=== PATIENT | male | born 1990 | race Caucasian/White ===

== ENCOUNTER → 2025-06-25 | Outpatient (CLI) | payer OTHER, SELFPAY ==
--- OUTSIDE RECORDS SUMMARY | 2024-09-04 10:14 | XMS RPT_ITS ---
Author Name Auto Generated Organization OHIP Care Team Providers Care Actuarial Internship Name Role Phone POLLY FISHER Attending Unavaanthony lable JANE, POLLY VISHNU Primary Care Unavai lable JANEMIMA [place] VISHNU Referring Unavai lable JANE, GREENBUSH VISHNU Primary Care Unavai lable PROBLEMS DATE TYPE CONDITION / CODE ATTENDING STATUS [facility] 01/15/2021 Active Seasonal allergi es / J30.2(ICD-10) [facility] 09/01/2024 Active Acute non-recurr ent maxillary sinusitis / J01.00(ICD-10) [facility] 09/01/2024 Active Class 1 obesity with body mass index (BMI) of 31.0 to 31.9 in adult, unspecified obesity type, unspecified whether serious comorbidity present / E66.811(ICD-10) [facility] 09/01/2024 Active Class 1 obesity with body mass index (BMI) of 31.0 to 31.9 in adult, unspecified obesity type, unspecified whether serious comorbidity present / Z68.31(ICD-10) [facility] 09/01/2024 Active Hyperlipidemia, mixed / E78.2(ICD-10) [facility] 09/01/2024 Active Screening for th yroid disorder / Z13.29(ICD-10) [facility] PROCEDURES No Procedure Records Found RESULTS COMP METAB 2000 PNL SERPL Collected: 9:17 AM Status: F Source: [facility] Order Comment: Specimen Type : BLOOD SPECIMEN Ordering Facility: [facility] Address: [address] [place] [id number] TYPE CODE TESTS RESULT OUT OF RANGE REFERENCE UNITS LAB 2885-2(LOINC) Prot SerPl-mCnc 7.1 6.3-8.0 g/dL LAB 1751-7(LOINC) Albumin SerPl-mCnc 4.7 3.9-4.9 g/dL LAB 10163-3(LOINC) Calcium SerPl-mCnc 9.7 8.5-10.2 mg/dL LAB 1975-2(LOINC) Bilirub SerPl-mCnc 0.4 0.2-1.3 mg/dL LAB 6768-6(LOINC) ALP SerPl-cCnc 85 38-113 U/L LAB 1920-8(LOINC) AST SerPl-cCnc 30 14-40 U/L LAB 1742-6(LOINC) ALT SerPl-cCnc 49 10-54 U/L LAB 2345-7(LOINC) Glucose SerPl-mCnc 98 74-99 mg/dL Result Comment: The [place] Diabetes [employer] (ADA) provides guidance for cutoff values for fasting glucose and random glucose. The ADA defines fasting as no caloric intake for at least 8 hours. Fasting plasma glucose results between 100 to 125 mg/dL indicate increased risk for diabetes (prediabetes). Fasting plasma glucose results greater than or equal to 126 mg/dL meet the criteria for diagnosis of diabetes. In the absence of unequivocal hyperglycemia, results should be confirmed by repeat testing. In a patient with classic symptoms of hyperglycemia or hyperglycemic crisis, random plasma glucose results greater than or equal to 200 mg/dL meet the criteria for diagnosis of diabetes. Reference: Standards of Medical Care in Diabetes 2016, [place] Diabetes Association. Diabetes Care. 2016.39(Suppl 1). LAB 3094-0(LOINC) BUN SerPl-mCnc 16 9-24 mg/ dL LAB 2160-0(LOINC) Creat SerPl-mCnc 1.02 0.73-1.22 mg/dL LAB 2951-2(LOINC) Sodium SerPl-sCnc 137 136-144 mmol/L LAB 2823-3(LOINC) Potassium SerPl-sCnc 4.0 3.7-5.1 mmol/L LAB 2075-0(LOINC) Chloride SerPl-sCnc 102 98-107 mmol/L LAB 2028-05(LOINC) CO2 SerPl-sCnc 23 22-30 mmo l/L LAB 25589-5(LOINC) Anion Gap SerPl-sCnc 12 8-15 mmol/L LAB 28115-4(LOINC) Creatinine + eGFR Pnl SerPlBld 98 >=60 mL/min/1 .73m??? Result Comment: Estimated Gl omerular Filtration Rate (eGFR) is calculated using the 2020 CKD-EPI creatinine equation. This equation utilizes serum creatinine, sex, and age as parameters. The creatinine assay has traceable calibration to isotope dilution-mass spectrometry. Refer to KDIGO guidelines for clinical interpretation. In patients with unstable renal function, e.g. those with acute kidney injury, the eGFR may not accurately reflect actual GFR. Performed By: #### 3016-3, 2 4323-8, 85704-3 #### [facility] CLIA [id number] [address] [place] [address] [place] LIPID 1996 PNL SERPL Collected: 024 9:17 AM Status: F Source: [facility] Order Comment: Specimen Type : BLOOD SPECIMEN Ordering Facility: [facility] Address: [address] [place] [address] TYPE CODE TESTS RESULT OUT OF RANGE REFERENCE UNITS LAB 3-3(LOINC) Cholest SerPl-mCnc 210 High <200 mg/dL Result Comment: <200 mg/dL, Desirable 200-239 mg/dL, Borderline high >239 mg/dL, High LAB 2571-8(LOINC) Trigl SerPl-mCnc 99 <150 mg/dL Result Comment: <150 mg/dL, Normal 150-199 mg/dL, Borderline high 200-499 mg/dL, High >499 mg/dL, Very high LAB 2085-9(LOINC) HDLc SerPl-mCnc 38 Low >39 mg/dL Result Comment: 40-59 mg/dL, Acceptable >59 mg/dL, High: Negative risk factor for coronary heart disease <40 mg/dL, Low: Positive risk factor for coronary heart disease LAB 42012-9(LOINC) NonHDLc SerPl-mCnc 172 High <130 mg/dL Result Comment: <130 mg/dL, Optimal 130-159 mg/dL, Near optimal/above optimal 160-189 mg/dL, Borderline high 190-219 mg/dL, High >219 mg/dL, Very high Secondary prevention optimal non HDL Cholesterol levels are recommended to be <100 mg/dL LAB FT FASTING TIME 13 hrs Result Comment: black coffee and water LAB 17506-8(LOINC) VLDLc SerPl Calc-mCnc 20 <30 mg/dL LAB 9830-1(LOINC) Cholest/HDLc SerPl 5.53 High <5.10 LAB 2089-1(LOINC) LDLc SerPl-mCnc 152 High <100 mg/dL Result Comment: <100 mg/dL, Optimal 100-129 mg/dL, Near optimal/above optimal 130-159 mg/dL, Borderline high 160-189 mg/dL, High >189 mg/dL, Very high Secondary prevention optimal LDL Cholesterol levels are recommended to be < 70 mg/dL LAB 60186-0(LOINC) LDLc/HDLc SerPl 4.00 High <2.54 Result Comment: Reference: 1. National Cholesterol Education Program ATP III Guideline At-A-Glance Quick Desk Reference: National Heart, Lung, and Blood [place]. National Institutes of Health. 2001: NIH Publication No. 01-3305. 2. An International Atherosclerosis Society position paper: global recommendations for the management of dyslipidemia: executive summary, Atherosclerosis. 2014: 232(2):410-413. Performed By: #### 3016-3, 2 432-8, 10688-7 #### [facility] CLIA [id number] [address] [place] [address] [place] TSH SERPL-ACNC Collected: 4 9:17 AM Status: F Source: [facility] Order Comment: Specimen Type : BLOOD SPECIMEN Ordering Facility: [facility] Address: [address] [place] [address] TYPE CODE TESTS RESULT OUT OF RANGE REFERENCE UNITS LAB 3016-3([facility]) TSH SerPl-aCnc 1.380 0.270-4.200 mIU/L Performed By: #### 3016-3, 2 1233-8, 98848-8 #### [facility] CLIA [id number] [address] [facility] [address] [address] [place] CBC W AUTO DIFF BLD Collected: 09/04/2024 9:[address] atus: F Source: [facility] Order Comment: Specimen Type : BLOOD SPECIMEN Ordering Facility: [facility] Address: [address] [place], [place] [id number] TYPE CODE TESTS RESULT OUT OF RANGE REFERENCE UNITS LAB 6690-2([facility]) WBC # Bld Auto 7.36 3.70-11.00 k/uL LAB 789-8([facility]) RBC # Bld Auto 4.93 4.20-6.00 m/ uL LAB 718-7([facility]) Hgb Bld-mCnc 14.6 13.0-17.0 g/dL LAB 4544-3([facility]) Hct VFr Bld Auto 43.8 39.0-51.0 % LAB 787-2([facility]) MCV RBC Auto 88.8 80.0-100.0 fL LAB 785-6([facility]) MCH RBC Qn Auto 29.6 26.0-34.0 p g LAB 786-4([facility]) MCHC RBC Auto-mCnc 33.3 30.5-36.0 g/dL LAB 77215-4([facility]) RDW RBC-Rto 12.1 11.5-15.0 % LAB 777-3(INC) Platelet # Bld Auto 331 150-400 k/uL LAB 21170-2(INC) PMV Bld Auto 9.6 9.0-12.7 fL LAB 770-8(INC) Neutrophils/leuk NFr Bld Auto 48.5 % LAB 751-8(INC) Neutrophils # Bld Auto 3.57 1.45-7.50 k/uL LAB 736-9(INC) Lymphocytes/leuk NFr Bld Auto 34.1 % LAB 731-0(LOINC) Lymphocytes # Bld Auto 2.51 1.00-4.00 k/uL LAB 5905-5(INC) Monocytes/leuk NFr Bld Auto 12.9 % LAB 742-7(LOINC) Monocytes # Bld Auto 0.95 High <0.87 k/uL LAB 713-8(LOINC) Eosinophil/leuk NFr Bld Auto 3.0 % LAB 711-2(LOINC) Eosinophil # Bld Auto 0.22 <0.46 k/uL LAB 706-2(LOINC) Basophils/leuk NFr Bld Auto 1.1 % LAB 704-7(LOINC) Basophils # Bld Auto 0.08 <0.11 k/uL LAB 93411-4(LOINC) Imm Granulocytes/iris k NFr Bld Auto 0.4 % LAB 94535-0(LOINC) Imm Granulocytes # Bld Auto 0.03 <0.10 k/uL LAB 81501-2(LOINC) nRBC/100 WBC Bld-Rto 0.0 /100 WBC LAB 771-6(LOINC) nRBC # Bld Auto <0.01 <0.01 k/u L LAB 85409-9(LOINC) Differential method Bld Auto Performed By: #### 71993-0 # ### [facility] CLIA [id number] [address] [place] [address] CNOV Observed: 09/01/2024 10:30 AM Status: COMPLETED Source: [facility] Office Visit (FPDOYL) KALIA IVY ([id number]) 1990 M Date Time Provider Department 09/01/24 10:30 AM POLLY FISHER FPDOYL During your visit today, we recorded the following information about you: Pulse Blood pressure Weight Height 79/minute 120/88 105.7 kg 1.829 m Polly Fisher DO 09/10/2024 8:21 PM Signed [facility] [place] Fisher DO [address] [place] [address] Date of Evaluation: 09/01/2024 Patient Name: Kalia Ivy : 1990 Chief Complaint: Patient presents with: URI: Was recently ill - would like to have zpac refilled Sore throat Sinus infection s/s Nursing Intake: There are no exam notes on file for this visit. Subjective Mr. Ivy is a 33 year old male who presents with the following complaint(s): The history is provided by the patient. No agronomy manager was used. URI There is no cough or shortness of breath. This is a new problem. The current episode started in the past 7 days. The problem occurs daily. The problem has been unchanged. Associated symptoms include nasal congestion and a sore throat. Pertinent negatives include no chest pain or headaches. Review of Systems Constitutional: Negative for fatigue and unexpected weight change. HENT: Positive for sore throat. Negative for nosebleeds. Eyes: Negative for redness and visual disturbance. Respiratory: Negative for apnea, cough and shortness of breath. Cardiovascular: Negative for chest pain, palpitations and leg swelling. Genitourinary: Negative for hematuria. Neurological: Negative for dizziness, weakness, light-headedness, numbness and headaches. Hematological: Does not bruise/bleed easily. Psychiatric/Behavioral: The patient is not nervous/anxious. PAST MEDICAL HISTORY Diagnosis Date Acute upper respiratory infection Attention-deficit hyperactivity disorder, unspecified type Dyspnea Lumbar spondylosis with myelopathy Sciatica PAST SURGICAL HISTORY Procedure Laterality Date HERNIA REPAIR HX 09/27/2014 inguinal ORTHOPEDIC SURGERY HX right hand TONSILLECTOMY HX 09/27/2010 FAMILY HISTORY Problem Relation Age of Onset Cancer Mother Diabetes Maternal Grandmother Social History Tobacco Use Smoking status: Former Types: Cigarettes Start date: 04/19/2006 Smokeless tobacco: Former Types: Chew Vaping Use Vaping status: Never Used Substance Use Topics Alcohol use: Yes Alcohol/week: 3.0 standard drinks of alcohol Types: 3 Cans of Beer (12oz) per week Current Outpatient Medications Medication Sig valACYclovir (VALTREX) 1 gram Take 1 tablet by mouth as needed (Take 2 tablets at onset, then 12 hours later take 2 more. Then 3 times a day until relief.). At onset of cold sore MULTIVITAMIN ORAL Take by mouth. azithromycin (ZITHROMAX Z-JESENIA) 250 mg tablet 2 tablets by mouth first day then 1 tablet the next 4 days fluticasone (FLONASE) 50 mcg/actuation nasal spray Use 2 Sprays in each nostril once daily. amphetamine-dextroamphetamine XR (ADDERALL XR) 20 mg capsule Take 1 capsule by mouth once daily for 30 doses. dextroamphetamine-amphetamine (ADDERALL) 10 mg tablet Sig: take 1 tablet by mouth once daily AT NOON predniSONE (DELTASONE) 10 mg tablet Take 3 tablets by mouth for 3 days, then take 2 tablets by mouth for 3 days, then take 1 tablet by mouth for 3 days. (Patient not taking: Reported on 11/14/2021) albuterol HFA (PROVENTIL HFA, VENTOLIN HFA) 90 mcg/actuation inhaler Inhale 2 Puffs as instructed every 4 hours as needed for wheezing/shortness of breath. No current facility-administered medications for this visit. I have confirmed and edited as necessary the past medical, family and social histories, HPI, and ROS obtained by others. Objective BP 120/88 Pulse 79 Ht 6' 0" (1.83m) Wt 233 lb (105.7kg) SpO2 95% BMI 31.59 kg/(m2). Physical Exam Vitals and nursing note reviewed. Constitutional: General: He is not in acute distress. Appearance: Normal appearance. He is well-developed. He is obese. He is ill-appearing. HENT: Head: Normocephalic. Left Ear: External ear normal. Nose: Nose normal. Mouth/Throat: Mouth: Mucous membranes are moist. Pharynx: Oropharynx is clear. Uvula midline. No oropharyngeal exudate or posterior oropharyngeal erythema. Eyes: General: Lids are normal. Vision grossly intact. Gaze aligned appropriately. No scleral icterus. Right eye: No discharge. Left eye: No discharge. Extraocular Movements: Extraocular movements intact. Conjunctiva/sclera: Conjunctivae normal. Pupils: Pupils are equal, round, and reactive to light. Neck: Thyroid: No thyroid mass, thyromegaly or thyroid tenderness. Vascular: No carotid bruit. Trachea: Trachea and phonation normal. Cardiovascular: Rate and Rhythm: Normal rate and regular rhythm. Pulses: Normal pulses. Heart sounds: Normal heart sounds. Pulmonary: Effort: Pulmonary effort is normal. Breath sounds: Normal breath sounds. Abdominal: General: Abdomen is flat. Bowel sounds are normal. Palpations: Abdomen is soft. Musculoskeletal: General: Normal range of motion. Right shoulder: Normal. Left shoulder: Normal. Cervical back: Normal, full passive range of motion without pain and neck supple. No tenderness. No spinous process tenderness. Thoracic back: Normal. Lumbar back: Normal. Right knee: Normal. Left knee: Normal. Right lower leg: No edema. Left lower leg: No edema. Lymphadenopathy: Cervical: No cervical adenopathy. Skin: General: Skin is warm and dry. Neurological: General: No focal deficit present. Mental Status: He is alert and oriented to person, place, and time. Mental status is at baseline. Sensory: Sensation is intact. Motor: Motor function is intact. Psychiatric: Attention and Perception: Attention and perception normal. Mood and Affect: Mood normal. Speech: Speech normal. Behavior: Behavior normal. Thought Content: Thought content normal. Judgment: Judgment normal. Data Reviewed: No new labs ASSESSMENT/PLAN: 1. Acute non-recurrent maxillary sinusitis - ICD9: 461.0, ICD10: J01.00 (primary diagnosis) - Will begin treatment with as per antibiotic as written, see orders - AZITHROMYCIN 250 MG TABLET 2. Hyperlipidemia, mixed - ICD9: 272.2, ICD10: E78.2 - Control undetermined, due for labs - COMPLETE BLOOD COUNT AND DIFFERENTIAL - COMPREHENSIVE METABOLIC PANEL - LIPID PANEL BASIC 3. Screening for thyroid disorder - ICD9: V77.0, ICD10: Z13.29 - THYROID STIMULATING HORMONE 4. Attention deficit hyperactivity disorder (ADHD), combined type - ICD9: 314.01, ICD10: F90.2 - Patient does not feel he needs ADHD medication and has not been taking. 5. Seasonal allergies - ICD9: 477.9, ICD10: J30.2 - Continue Flonase - FLUTICASONE PROPIONATE 50 MCG/ACTUATION NASAL SPRAY,SUSPENSION 6. Class 1 obesity with body mass index (BMI) of 31.0 to 31.9 in adult, unspecified obesity type, unspecified whether serious comorbidity present - ICD9: 278.00, V85.31, ICD10: E66.811, Z68.31 Polly Fisher, DO Return if symptoms worsen or fail to improve. Attestation: Scribe Attestation: The patient is seen and examined by Dr. Fisher and the following reflects his/her service. Scribed by Kassie Gordon September 01, 2024 10:40 AMProvider Attestation: I, Polly Fisher DO personally performed the services described in this documentation. All medical record entries made by the scribe were at my direction and in my presence. I have reviewed the chart and discharge instructions (if applicable) and agree that the record reflects my personal performance and is accurate and complete. Electronically Signed: Polly Fisher DO, September 01, 2024 10:43 AM Referring Provider: SELF [200] Allergies As of Date: 09/01/2024 Noted Allergy Reaction DIPHTHERIA TOXOID,ADSORBED 07/09/2018 12 - Shortness of Breath PENICILLIN 04/19/2016 2 - Rash PERTUSSIS IMMUNE GLOBULIN 04/19/2016 10 - Anaphylaxis POISON MIN EXTRACT 05/15/2015 16 - Unknown Date Reviewed: 09/01/2024 Reviewed by: Dori Mar LPN - Fully Assessed Reason for Visit: URI [115] Cmt: Was recently ill - would like to have zpac refilled Sore throat Sinus infection s/s Primary Visit Diagnosis:Hyperlipidemia, mixed [E78.2] Other Visit Diagnoses:Acute non-recurrent maxillary sinusitis [J01.00] Attention deficit hyperactivity disorder (ADHD), combined type [F90.2] Seasonal allergies [J30.2] Screening for thyroid disorder [Z13.29] Class 1 obesity with body mass index (BMI) of 31.0 to 31.9 in adult, unspecified obesity type, unspecified whether serious comorbidity present [E66.811, Z68.31] Order(s):azithromycin (ZITHROMAX Z-JESENIA) 250 mg tablet2 tablets by mouth first day then 1 tablet the next 4 daysDisp: 6 tabletRfl: 0 fluticasone (FLONASE) 50 mcg/actuation nasal sprayUse 2 Sprays in each nostril once daily.Disp: 1 EachRfl: 11 COMPLETE BLOOD COUNT AND DIFFERENTIAL [SQCBCDIF] Order #: [id number] FUTURE COMPREHENSIVE METABOLIC PANEL [SQCMP] Order #: [id number] FUTURE THYROID STIMULATING HORMONE [SQTSH] Order #: [id number] FUTURE LIPID PANEL BASIC [SQLIPB] Order #: [id number] FUTURE atorvastatin (LIPITOR) 20 mg tabletTake 1 tablet by mouth once daily.Disp: 90 tabletRfl: 3 LIPID PANEL BASIC [SQLIPB] Reflex Order#: [id number] (Ord#:[id number]) FUTURE HEPATIC FUNCTION PNL [SQHFP] Reflex Order#: [id number] (Ord#:[id number]) FUTURE Prescriptions as of 09/10/2024 - atorvastatin (LIPITOR) 20 mg tablet Take 1 tablet by mouth once daily. - azithromycin (ZITHROMAX Z-JESENIA) 250 mg tablet 2 tablets by mouth first day then 1 tablet the next 4 days - fluticasone (FLONASE) 50 mcg/actuation nasal spray Use 2 Sprays in each nostril once daily. - amphetamine-dextroamphetamine XR (ADDERALL XR) 20 mg capsule Take 1 capsule by mouth once daily for 30 doses. - dextroamphetamine-amphetamine (ADDERALL) 10 mg tablet Sig: take 1 tablet by mouth once daily AT NOON - valACYclovir (VALTREX) 1 gram Take 1 tablet by mouth as needed (Take 2 tablets at onset, then 12 hours later take 2 more. Then 3 times a day until relief.). At onset of cold sore - predniSONE (DELTASONE) 10 mg tablet Take 3 tablets by mouth for 3 days, then take 2 tablets by mouth for 3 days, then take 1 tablet by mouth for 3 days. - albuterol HFA (PROVENTIL HFA, VENTOLIN HFA) 90 mcg/actuation inhaler Inhale 2 Puffs as instructed every 4 hours as needed for wheezing/shortness of breath. - MULTIVITAMIN ORAL Take by mouth. Problem List As Of Date 09/01/2024 Noted Resolved Attention-deficit hyperactivity disorder, unspe* Seasonal allergies [J30.2] 01/15/2021 Elevated blood pressure reading without diagnos*08/12/2021 Prescriptions ordered this encounter Disp Refills Start End AZITHROMYCIN 250 MG TABLET 6 ta* 0 09/01/2024 Si tablets by mouth first day then 1 tablet the next 4 days FLUTICASONE PROPIONATE 50 MCG/ACTUAT* 1 Ea* 11 09/01/2024 Route: EACH NOSTRIL Sig: Use 2 Sprays in each nostril once daily. ATORVASTATIN 20 MG TABLET 90 t* 3 09/06/2024 09/06/2025 Route: ORAL Sig: Take 1 tablet by mouth once daily. Medications Discontinued During This Encounter Prescriptions - fluticasone (FLONASE) 50 mcg/actuation nasal spray (Discontinued) Use 2 Sprays in each nostril once daily. - azithromycin (ZITHROMAX Z-JESENIA) 250 mg tablet (Discontinued) 2 tablets by mouth first day then 1 tablet the next 4 days Disposition: Return if symptoms worsen or fail to improve. Follow-up and Disposition History for Encounter Date Provider Department Center 09/01/2024 [id number]-CDAPDBAJPOLLY FISHER*WENDYSHABBIR Diaz Encounter Status:Closed by POLLY FISHER on 09/10/24 PROGRESS Observed: 09/01/2024 10:26 AM Status: COMPLETED Source: [facility] HNO ID: [id number] Author: POLLY FISHER DO Service: ? Author Type: Physician Type: Progress Notes Filed: 09/10/2024 20:21 Note Text: [facility] [place] Fisher DO [address] [place] [address] Date of Evaluation: 09/01/2024 Patient Name: Kalia Ivy : 1990 Chief Complaint: Patient presents with: URI: Was recently ill - would like to have zpac refilled Sore throat Sinus infection s/s Nursing Intake: There are no exam notes on file for this visit. Subjective Mr. Ivy is a 33 year old male who presents with the following complaint(s): The history is provided by the patient. No agronomy manager was used. URI There is no cough or shortness of breath. This is a new problem. The current episode started in the past 7 days. The problem occurs daily. The problem has been unchanged. Associated symptoms include nasal congestion and a sore throat. Pertinent negatives include no chest pain or headaches. Review of Systems Constitutional: Negative for fatigue and unexpected weight change. HENT: Positive for sore throat. Negative for nosebleeds. Eyes: Negative for redness and visual disturbance. Respiratory: Negative for apnea, cough and shortness of breath. Cardiovascular: Negative for chest pain, palpitations and leg swelling. Genitourinary: Negative for hematuria. Neurological: Negative for dizziness, weakness, light-headedness, numbness and headaches. Hematological: Does not bruise/bleed easily. Psychiatric/Behavioral: The patient is not nervous/anxious. PAST MEDICAL HISTORY Diagnosis Date Acute upper respiratory infection Attention-deficit hyperactivity disorder, unspecified type Dyspnea Lumbar spondylosis with myelopathy Sciatica PAST SURGICAL HISTORY Procedure Laterality Date HERNIA REPAIR HX 09/27/2014 inguinal ORTHOPEDIC SURGERY HX right hand TONSILLECTOMY HX 09/27/2010 FAMILY HISTORY Problem Relation Age of Onset Cancer Mother Diabetes Maternal Grandmother Social History Tobacco Use Smoking status: Former Types: Cigarettes Start date: 04/19/2006 Smokeless tobacco: Former Types: Chew Vaping Use Vaping status: Never Used Substance Use Topics Alcohol use: Yes Alcohol/week: 3.0 standard drinks of alcohol Types: 3 Cans of Beer (12oz) per week Current Outpatient Medications Medication Sig valACYclovir (VALTREX) 1 gram Take 1 tablet by mouth as needed (Take 2 tablets at onset, then 12 hours later take 2 more. Then 3 times a day until relief.). At onset of cold sore MULTIVITAMIN ORAL Take by mouth. azithromycin (ZITHROMAX Z-JESENIA) 250 mg tablet 2 tablets by mouth first day then 1 tablet the next 4 days fluticasone (FLONASE) 50 mcg/actuation nasal spray Use 2 Sprays in each nostril once daily. amphetamine-dextroamphetamine XR (ADDERALL XR) 20 mg capsule Take 1 capsule by mouth once daily for 30 doses. dextroamphetamine-amphetamine (ADDERALL) 10 mg tablet Sig: take 1 tablet by mouth once daily AT NOON predniSONE (DELTASONE) 10 mg tablet Take 3 tablets by mouth for 3 days, then take 2 tablets by mouth for 3 days, then take 1 tablet by mouth for 3 days. (Patient not taking: Reported on 11/14/2021) albuterol HFA (PROVENTIL HFA, VENTOLIN HFA) 90 mcg/actuation inhaler Inhale 2 Puffs as instructed every 4 hours as needed for wheezing/shortness of breath. No current facility-administered medications for this visit. I have confirmed and edited as necessary the past medical, family and social histories, HPI, and ROS obtained by others. Objective BP 120/88 Pulse 79 Ht 6' 0" (1.83m) Wt 233 lb (105.7kg) SpO2 95% BMI 31.59 kg/(m2). Physical Exam Vitals and nursing note reviewed. Constitutional: General: He is not in acute distress. Appearance: Normal appearance. He is well-developed. He is obese. He is ill-appearing. HENT: Head: Normocephalic. Left Ear: External ear normal. Nose: Nose normal. Mouth/Throat: Mouth: Mucous membranes are moist. Pharynx: Oropharynx is clear. Uvula midline. No oropharyngeal exudate or posterior oropharyngeal erythema. Eyes: General: Lids are normal. Vision grossly intact. Gaze aligned appropriately. No scleral icterus. Right eye: No discharge. Left eye: No discharge. Extraocular Movements: Extraocular movements intact. Conjunctiva/sclera: Conjunctivae normal. Pupils: Pupils are equal, round, and reactive to light. Neck: Thyroid: No thyroid mass, thyromegaly or thyroid tenderness. Vascular: No carotid bruit. Trachea: Trachea and phonation normal. Cardiovascular: Rate and Rhythm: Normal rate and regular rhythm. Pulses: Normal pulses. Heart sounds: Normal heart sounds. Pulmonary: Effort: Pulmonary effort is normal. Breath sounds: Normal breath sounds. Abdominal: General: Abdomen is flat. Bowel sounds are normal. Palpations: Abdomen is soft. Musculoskeletal: General: Normal range of motion. Right shoulder: Normal. Left shoulder: Normal. Cervical back: Normal, full passive range of motion without pain and neck supple. No tenderness. No spinous process tenderness. Thoracic back: Normal. Lumbar back: Normal. Right knee: Normal. Left knee: Normal. Right lower leg: No edema. Left lower leg: No edema. Lymphadenopathy: Cervical: No cervical adenopathy. Skin: General: Skin is warm and dry. Neurological: General: No focal deficit present. Mental Status: He is alert and oriented to person, place, and time. Mental status is at baseline. Sensory: Sensation is intact. Motor: Motor function is intact. Psychiatric: Attention and Perception: Attention and perception normal. Mood and Affect: Mood normal. Speech: Speech normal. Behavior: Behavior normal. Thought Content: Thought content normal. Judgment: Judgment normal. Data Reviewed: No new labs ASSESSMENT/PLAN: 1. Acute non-recurrent maxillary sinusitis - ICD9: 461.0, ICD10: J01.00 (primary diagnosis) - Will begin treatment with as per antibiotic as written, see orders - AZITHROMYCIN 250 MG TABLET 2. Hyperlipidemia, mixed - ICD9: 272.2, ICD10: E78.2 - Control undetermined, due for labs - COMPLETE BLOOD COUNT AND DIFFERENTIAL - COMPREHENSIVE METABOLIC PANEL - LIPID PANEL BASIC 3. Screening for thyroid disorder - ICD9: V77.0, ICD10: Z13.29 - THYROID STIMULATING HORMONE 4. Attention deficit hyperactivity disorder (ADHD), combined type - ICD9: 314.01, ICD10: F90.2 - Patient does not feel he needs ADHD medication and has not been taking. 5. Seasonal allergies - ICD9: 477.9, ICD10: J30.2 - Continue Flonase - FLUTICASONE PROPIONATE 50 MCG/ACTUATION NASAL SPRAY,SUSPENSION 6. Class 1 obesity with body mass index (BMI) of 31.0 to 31.9 in adult, unspecified obesity type, unspecified whether serious comorbidity present - ICD9: 278.00, V85.31, ICD10: E66.811, Z68.31 Polly Fisher DO Return if symptoms worsen or fail to improve. Attestation: Scribe Attestation: The patient is seen and examined by Dr. Fisher and the following reflects his/her service. Scribed by Kassie Gordon September 01, 2024 10:40 AMProvider Attestation: I, Polly Fisher DO personally performed the services described in this documentation. All medical record entries made by the scribe were at my direction and in my presence. I have reviewed the chart and discharge instructions (if applicable) and agree that the record reflects my personal performance and is accurate and complete. Electronically Signed: Polly Fisher DO, September 01, 2024 10:43 AM CNPN Observed: 08/28/2024 12:00 AM Status: COMPLETED Source: [facility] Telephone (FPDOYL) KALIA IVY ([id number]) 1990 M Date Time Provider Department 08/28/24 POLLY FISHER During your visit today, we recorded the following information about you: Brie Sibley 08/28/2024 3:53 PM Signed ----- Message from Ankit Mcpherson sent at 08/28/2024 11:54 AM EST ----- [facility]/ Polly Fisher / [place] / callback Subject Line Format: Medicine / Polly Fisher DO / [Issue] Select Department Name For Pool Routing Assistance: [facility] [place] [facility] [place] [facility] [place] [[id number]] Patient: Kalia Ivy Date of : 1990 Primary Care Provider: Polly Fisher DO The reason I am contacting the office is: Call Back - Patient is requesting a call back from the office about getting a refill . Scheduled his appt for 09/04/2024 needs refills sooner . Person calling if other than patient: n/a Best contact number: [phone] Thank you, Ankit Flores August 28, 2024 11:54 AM Brie Sibley 08/28/2024 3:53 PM Signed Due to pt not feeling well and needing an antibiotic pt has been added to the wait list. Brie Sibley Allergies As of Date: 08/28/2024 Noted Allergy Reaction DIPHTHERIA TOXOID,ADSORBED 07/09/2018 12 - Shortness of Breath PENICILLIN 04/19/2016 2 - Rash PERTUSSIS IMMUNE GLOBULIN 04/19/2016 10 - Anaphylaxis POISON MIN EXTRACT 05/15/2015 16 - Unknown Date Reviewed: 06/24/2023 Reviewed by: Mer Simons LPN - Fully Assessed Reason for Visit: Appointment [[id number]] Prescriptions as of 08/28/2024 - amphetamine-dextroamphetamine XR (ADDERALL XR) 20 mg capsule Take 1 capsule by mouth once daily for 30 doses. - dextroamphetamine-amphetamine (ADDERALL) 10 mg tablet Sig: take 1 tablet by mouth once daily AT NOON - azithromycin (ZITHROMAX Z-JESENIA) 250 mg tablet 2 tablets by mouth first day then 1 tablet the next 4 days - fluticasone (FLONASE) 50 mcg/actuation nasal spray Use 2 Sprays in each nostril once daily. - valACYclovir (VALTREX) 1 gram Take 1 tablet by mouth as needed (Take 2 tablets at onset, then 12 hours later take 2 more. Then 3 times a day until relief.). At onset of cold sore - predniSONE (DELTASONE) 10 mg tablet Take 3 tablets by mouth for 3 days, then take 2 tablets by mouth for 3 days, then take 1 tablet by mouth for 3 days. - albuterol HFA (PROVENTIL HFA, VENTOLIN HFA) 90 mcg/actuation inhaler Inhale 2 Puffs as instructed every 4 hours as needed for wheezing/shortness of breath. - MULTIVITAMIN ORAL Take by mouth. Problem List As Of Date 08/28/2024 Noted Resolved Attention-deficit hyperactivity disorder, unspe* Seasonal allergies [J30.2] 01/15/2021 Elevated blood pressure reading without diagnos*08/12/2021 Encounter Status:Closed by BRIE SIBLEY on 08/28/24 ALLERGIES DATE TYPE / CODE NAME / CODE REACTION SEVERITY SOURCE 07/09/2018 DRUG INGREDI/9491396 03(SNOMED CT) DIPHTHERIA TOXOID,ADSORBED SHORTNESS OF [facility] 04/19/2016 DRUG INGREDI/2374208 03(SNOMED CT) PENICILLIN RASH [facility] 04/19/2016 DRUG INGREDI/2968916 03(SNOMED CT) PERTUSSIS IMMUNE GLOBULIN ANAPHYLAXIS [facility] 05/15/2015 DRUG INGREDI/9960966 03(SNOMED CT) POISON MIN EXTRACT UNKNOWN [facility] ENCOUNTERS ADMIT/DISCHARGE ACCOUNT NUMBER ADMITTING ENCOUNTER CLASS LOC ATION SOURCE 09/04/2024/ 4 [id number] Ambulatory [facility] Hospital[facility] ing:GRNTDS [facility] 09/01/2024/ [id number] [facility] ng:FPDOYL [facility] PAYERS ENCOUNTER GUARANTOR PAYER SUBSCRIBER SOURCE 09/04/2024 Primary Insurance:[employer] Number: [id number] Date:[id number] Name:Ky BRAN: [id number] [place] [address] [facility] 09/01/2024 Primary Insurance:[employer] Number: [id number] Date:7622-23-90Mjvx Name:Ky BRAN: [id number] [place] [address] [facility]
--- NOTE | 2025-06-25 13:30 | LES_PTH ---
PATIENT: KALIA WALLACE LOC: [facility] U#:[id number] AGE/SX: 34/M ROOM: RE06/25/[address]: Dr. Owen Arriola MD : 1990 BED: DIS: 06/25/2025 SPEC #: [id number] RECD: 06/26/25 15:00 STATUS: BERRY GABBY #: [id number] LALYN: 06/25/25 13:[address]: Owen Arriola DEPT: SURGICAL PATHOLOGY RECD BY: Jorge Mayfield Tissues: A - Skin of lip, NOS Procedures: Surgery Specimen Level III HEADER OPERATION: Excision lower lip lesion, local only PRE-OP DIAGNOSIS: Other benign neoplasm of skin of lip TISSUE SUBMITTED: A- Lower lip mucocele MICROSCOPIC DIAGNOSIS A. Lower lip, "mucocele", excision: * Benign minor salivary gland parenchyma with focal acute inflammation consistent with mucocele. MICROSCOPIC DESCRIPTION Slides are reviewed. GROSS DESCRIPTION A. Received in formalin labeled with the patient's name and date of . Designated as " lower lip mucocele" is a 0.8 x 0.7 x 0.3 cm dimas-white, irregular and somewhat disrupted portion of skin and soft tissue. Entirely submitted in 1 cassette. [place] 06/26/2025 CPT:41565
== END | disposition home or self-care (01) ==
LOC: LABSPEC 15:37
PROVIDERS: Referring Provider Otolaryngology; Visit Provider Otolaryngology
DX: D23.0 Other benign neoplasm of skin of lip (principal)
CPT/HCPCS: 88304; 88305